=== PATIENT | female | born 1970 | race Caucasian/White ===

== ENCOUNTER 2016-09-17 09:49 | Emergency (ER) | payer OTHER ==
[2016-09-17 09:55] VITALS: BP 130/31; PULSE 102; TEMP 98.3; BMI 28.3
[2016-09-17] MEDS ORDERED: SODIUM PHOSPHATE/NA BIPHOS 133 ML ENEMA PR ONE (10:44)
--- NOTE | 2016-09-17 10:49 | PDOC ---
History of Present Illness - General Chief Complaint: Constipation Stated Complaint: CONSTIPATED Time Seen by Provider: 09/17/16 10:06 History Source: Patient Exam Limitations: No Limitations - History of Present Illness Initial Comments: 09/17/16 10:49 My Chief complaint: Constipation HISTORY OF PRESENT ILLNESS: Pt. is a 45 y/o female with no significant medical history except for constipation chronic. Patient reports that she took Dulcolax 3 days ago and drank another laxative unsure of name. Patient reports she had a small brown bowel movement yesterday and day prior. Patient continues to feel constipated and bloated yesterday. Patient denies any nausea or vomiting or fever. Patient denies eating white rice or white bread, eat salads and fruits and drinks water throughout the day. Patient has never seen a GI doctor for her chronic constipation. Patient does not take any stool softeners or any regular medication for constipation daily. Patient denies any rectal bleeding or hemorrhoids. 09/17/16 10:53 09/17/16 11:27 Timing/Duration: getting worse Severity: moderate Associated Symptoms: reports: other (last small BM 3 days ago) Past History - Past Medical History Allergies/Adverse Reactions: Allergies Allergy/AdvReac Type Severity Reaction Status Date / Time No Known Allergies Allergy Verified 09/17/16 09:55 Home Medications: Ambulatory Orders Docusate Sodium [Colace -] 200 mg PO DAILY #30 capsule MDD 200 09/17/16 Magnesium Hydroxide [Milk of Magnesia -] 30 ml PO DAILY PRN #1 bottle MDD 30 ml 09/17/16 Polyethylene Glycol 3350 [Miralax 255 gm Btl -] 17 gm PO DAILY #1 bottle Other medical history: CONSTIPATION - Psycho/Social/Smoking Cessation Hx Anxiety: No Suicidal Ideation: No Smoking History: Never smoked Hx Alcohol Use: No Drug/Substance Use Hx: No Substance Use Type: None Review of Systems - Review of Systems Able to Perform ROS?: Yes Constitutional: No: Symptoms Reported HEENTM: No: Symptoms Reported Respiratory: No: Symptoms reported Cardiac (ROS): No: Symptoms Reported ABD/GI: Yes: Constipated. No: Blood Streaked Bowels, Nausea, Rectal Bleeding, Vomiting, Abdominal cramping, Tarry Stools : No: Symptoms Reported Musculoskeletal: No: Symptoms Reported Integumentary: No: Symptoms Reported Neurological: No: Symptoms reported *Physical Exam - Vital Signs Last Vital Signs Temp Pulse Resp BP Pulse Ox 98.3 F 102 H 18 130/31 98 09/17/16 09:52 09/17/16 09:52 09/17/16 09:52 09/17/16 09:52 09/17/16 09:52 - Physical Exam General Appearance: Yes: Appropriately Dressed Respiratory/Chest: positive: Lungs Clear, Normal Breath Sounds. negative: Chest Tender, Respiratory Distress Cardiovascular: positive: Regular Rhythm, Regular Rate, S1, S2 Gastrointestinal/Abdominal: positive: Normal Bowel Sounds, Soft. negative: Tender, Organomegaly, Increased Bowel Sounds, Decreased BS, Protuberent, Distended, Guarding, Rebound, Tenderness, Hepatomegaly, Spleenomegaly Rectal Exam: positive: normal rectal tone, other (no stool felt in rectal vault) . negative: hemorrhoids Integumentary: negative: Normal Color Neurologic: positive: Alert Medical Decision Making - Medical Decision Making 09/17/16 10:52 Pt. is a 45 y/o female with no significant medical history except for constipation chronic. Patient reports that she took Dulcolax 3 days ago and drank another laxative unsure of name. Patient reports she had a small brown bowel movement yesterday and day prior. Patient continues to feel constipated and bloated yesterday. Patient denies any nausea or vomiting or fever. Patient denies eating white rice or white bread, eat salads and fruits and drinks water throughout the day. Patient has never seen a GI doctor for her chronic constipation. Patient does not take any stool softeners or any regular medication for constipation daily. Patient denies any rectal bleeding or hemorrhoids. Pt. denies any chance of has not been sexually active for over 5 months and gets regular menses. CONSTIPATION PLAN: XRAY ABDOMINAL FLAT PLATE KUB some abdominal distention upper abdomen, imaging reveals no sign of fecal impaction or gross constipation.There is some minimal amout of retained stoop. There are air-filled loops of bowel in the upper abdomen. NO sign of a gross obstruction or constipation/fecal impaction. Dr. Goel pt. to do Fleet enema at home Miralax 17 GM daily Colace 200mg daily Mild of magnesia as directed GI follow up 09/17/16 10:53 09/17/16 11:11 09/17/16 11:28 09/17/16 11:42 *DC/Admit/Observation/Transfer Diagnosis at time of Disposition: Constipation Qualifiers: Constipation type: unspecified constipation type Qualified Code(s): K59.00 - Constipation, unspecified - Discharge Dispostion Disposition: HOME Condition at time of disposition: Stable - Prescriptions Prescriptions: Docusate Sodium [Colace -] 200 mg PO DAILY #30 capsule MDD 200 Magnesium Hydroxide [Milk of Magnesia -] 30 ml PO DAILY PRN #1 bottle MDD 30 ml PRN Reason: Constipation Polyethylene Glycol 3350 [Miralax 255 gm Btl -] 17 gm PO DAILY #1 bottle - Referrals Referrals: Jake Garcia MD [Primary Care Provider] - Wilber Olson MD [Staff Physician] - - Patient Instructions Additional Instructions: Up with GI doctor as soon as possible for further evaluation return to emergency room if symptoms worsen or new symptoms develop Drink eight glass of 8 oz daily EAt at least 8-10 servings of fruit and vegetables daily Take milk of magnesia as directed by shank breaker for constipation Patient Voiced understanding of discharge instructions and all questions were answered
== END 2016-09-17 11:39 | disposition home or self-care (01) ==
LOC: JERFT 09:49
DX: K59.09 Other constipation (principal)
CPT/HCPCS: 74000-TC; 99281-25

== ENCOUNTER 2017-08-23 10:04 | Emergency (ER) | payer OTHER ==
[2017-08-23 10:17] VITALS: TEMP 98.5; BMI 25.6
[2017-08-23] MEDS ORDERED: SODIUM CHLORIDE 1,000 ML IV STA (10:35)
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
[2017-08-23 11:34] LABS: HEMATOCRIT 40.3 % (32.4-45.2); HEMOGLOBIN 13.3 GM/dL (10.7-15.3); MCH 27.8 pg (25.7-33.7); MCHC 32.9 g/dl (32.0-36.0); MEAN CELL VOLUME 84.5 fl (80-96); PLATELET COUNT 313 K/MM3 (134-434); RBC 4.77 M/mm3 (3.60-5.2); RDW 14.4 % (11.6-15.6); WHITE BLOOD COUNT 6.9 K/mm3 (4.0-10.0)
[2017-08-23 11:44] LABS: ALBUMIN 3.7 g/dl (3.4-5.0); ANION GAP 6 (8-16); BLOOD UREA NITROGEN 8 mg/dL (7-18); CALCIUM 8.3 mg/dL (8.5-10.1); CHLORIDE 105 mmol/L (98-107); CO2 30 mmol/L (21-32); CREATININE 0.8 mg/dL (0.55-1.02); GLUCOSE,RANDOM 95 mg/dL (74-106); POTASSIUM 3.5 mmol/L (3.5-5.1); SGOT/AST 13 U/L (15-37); SGPT/ALT 20 U/L (12-78); SODIUM 141 mmol/L (136-145)
[2017-08-23 11:46] LABS: ALK PHOS 58 U/L (45-117); BILIRUBIN,TOTAL 0.3 mg/dL (0.2-1.0); TOT PROT 7.2 g/dl (6.4-8.2)
[2017-08-23 12:44] LABS: HCG,QUALITATIVE URINE NEGATIVE; URINE APPEARANCE CLEAR; URINE BILIRUBIN NEGATIVE (<2.0 mg/dL); URINE COLOR COLORLESS; URINE GLUCOSE (UA) NEGATIVE (NEGATIVE); URINE KETONE NEGATIVE (NEGATIVE); URINE LEUK ESTERASE NEGATIVE (NEGATIVE); URINE NITRITE NEGATIVE (NEGATIVE); URINE PROTEIN NEGATIVE (NEGATIVE); URINE UROBILINOGEN NEGATIVE mg/dL (0.2-1.0)
[2017-08-23 12:57] LABS: COCAINE, UR NEGATIVE ng/ml (CUTOFF=300); METHADONE, UR NEGATIVE ng/ml (CUTOFF=300); OPIATES, URI NEGATIVE ng/ml (CUTOFF=300); PHENCYCLIDINE,URINE NEGATIVE ng/ml (CUTOFF=25); URINE AMPHETAMINES NEGATIVE ng/ml (CUTOFF=500); URINE BARBITURATES NEGATIVE ng/ml (CUTOFF=200); URINE BENZODIAZEPINES NEGATIVE ng/ml (CUTOFF=200)
[2017-08-23 13:20] VITALS: BP 121/83; PULSE 97
--- NOTE | 2017-08-24 11:19 | EKG ---
Test Reason : Blood Pressure : / mmHG Vent. Rate : 093 BPM Atrial Rate : 093 BPM P-R Int : 154 ms QRS Dur : 082 ms QT Int : 402 ms P-R-T Axes : 062 035 046 degrees QTc Int : 499 ms NORMAL SINUS RHYTHM PROLONGED QT ABNORMAL ECG NO PREVIOUS ECGS AVAILABLE Confirmed by JOSE SHARIF MD ([id number]) on 08/24/2017 11:19:32 AM Referred By: Confirmed By:JOSE HSARIF MD
== END 2017-08-23 14:19 | disposition home or self-care (01) ==
LOC: JER 10:04
PROC: 3E0337Z Introduction of Electrolytic and Water Balance Substance into Peripheral Vein, Percutaneous Approach (ICD-10-PCS; principal; 2017-08-23)
DX: R42 Dizziness and giddiness (principal)
CPT/HCPCS: 36415; 80053; 80307; 81003; 84703; 85027; 93005; 93010; 99283-25; J7030

== ENCOUNTER 2019-12-25 13:55 | Emergency (ER) | payer OTHER ==
[2019-12-25 14:10] VITALS: BP 116/69; PULSE 85; TEMP 98.3; BMI 30.7
[2019-12-25] MEDS ORDERED: SODIUM CHLORIDE 1,000 ML IV STA (14:17)
--- NOTE | 2019-12-25 14:48 | PDOC ---
History of Present Illness - General Chief Complaint: Pain Stated Complaint: BURNING URINATION Time Seen by Provider: 12/25/19 14:16 History Source: Patient Exam Limitations: Clinical Condition - History of Present Illness Travel History: No Initial Comments: 12/25/19 14:44 Patient with past medical history of chronic constipation presented with complai nt of 2-day history of suprapubic pain, burning with urination and left lower quadrant pain and bloating sensation. Patient reported no bowel movement in the last 3 days. Patient report she used to take Colace daily to help with bowel movement but self DC'd the medication as she does not feel is good for her anymore. Denies nausea, vomiting, fever, chills, shortness of breath, chest pain, palpitations, weakness. Denies any other symptoms Timing/Duration: reports: constant Quality: reports: moderate Abdominal Pain Onset Location: reports: LLQ, suprapubic Pain Radiation: reports: no radiation Alleviating Factors: improves with: Passing Gas Past History - Medical History Allergies/Adverse Reactions: Allergies Allergy/AdvReac Type Severity Reaction Status Date / Time No Known Allergies Allergy Verified 12/25/19 14:03 Home Medications: Ambulatory Orders Cephalexin Monohydrate [Keflex -] 500 mg PO BID 7 Days #14 capsule 12/25/19 Phenazopyridine HCl [Pyridium -] 100 mg PO PC #6 tablet 12/25/19 Polyethylene Glycol 3350 [Miralax (For Daily Use) -] 17 gm PO DAILY #1 bottle 12/25/19 Psyllium Husk (with Sugar) [Metamucil Powder] 1 tbs PO BID PRN #1 bottle 0 12/25/19 COPD: No - Reproductive History Is Patient Now?: No - Psycho-Social/Smoking History Smoking History: Never smoked - Substance Abuse Hx (Audit-C & DAST Scrn) How often the patient has a drink containing alcohol: Never Score: In Men: 4 or > Positive; In Women: 3 or > Positive: 0 Screen Result (Pos requires Nsg. Audit-10AR): Negative In the last yr the pt used illegal drug/Rx for NonMed reason: No Score: Yes response is considered Positive: 0 Screen Result (Positive result requires Nsg. DAST-10): Negative Review of Systems - Review of Systems Able to Perform ROS?: Yes Is the patient limited Syriac proficient: No Constitutional: No: Chills, Fever, Malaise HEENTM: No: Symptoms Reported, See HPI, Eye Pain, Blurred Vision, Tearing, Recent change in vision, Double Vision, Cataracts, Ear Pain, Ocular Prothesis, Ear Discharge, Nose Pain, Nose Congestion, Tinnitus, Nose Bleeding, Hearing Loss, Throat Pain, Throat Swelling, Mouth Pain, Dental Problems, Difficulty Sw allowing, Mouth Swelling, Other Respiratory: No: Symptoms reported, See HPI, Cough, Orthopnea, Shortness of Breath, SOB with Exertion, SOB at Rest, Stridor, Wheezing, Productive cough, Hemoptysis, Other Cardiac (ROS): No: Symptoms Reported, See HPI, Chest Pain, Edema, Irregular Heart Rate, Lightheadedness, Palpitations, Syncope, Chest Tightness, Other ABD/GI: Yes: Symptoms Reported, See HPI, Abdominal Distended, Constipated, Abdominal cramping (suprapubic). No: Abd. Pain w/ defecation, Diarrhea, Difficulty Swallowing, Nausea, Rectal Bleeding, Vomiting, Indigestion, Tarry Stools : Yes: Symptoms Reported, See HPI, Burning, Dysuria. No: Discharge, Flank Pain, Hematuria, Urgency Musculoskeletal: No: Symptoms Reported, See HPI, Back Pain Integumentary: No: Symptoms Reported Neurological: No: Headache, Dizziness All Other Systems: Reviewed and Negative *Physical Exam - Vital Signs Last Vital Signs Temp Pulse Resp BP Pulse Ox 98.3 F 85 18 116/69 98 12/25/19 14:03 12/25/19 14:03 12/25/19 14:03 12/25/19 14:03 12/25/19 14:03 - Physical Exam 12/25/19 14:47 GENERAL: Well developed, well nourished. Awake and alert. No acute distress. HEENT: Normocephalic, atraumatic. PERRLA, EOMI. No conjunctival pallor. Sclera are non-icteric. Moist mucous membranes. Oropharynx is clear. NECK: Supple. Full ROM. CARDIOVASCULAR: Regular rate and rhythm. No murmurs, rubs, or gallops. PULMONARY: No evidence of respiratory distress. Lungs clear to auscultation bilaterally. No wheezing, rales or rhonchi. ABDOMINAL: Soft. Moderate suprapubic tenderness. Non-distended. No rebound or guarding. No organomegaly. Diffuse decreased bowel sounds MUSCULOSKELETAL Normal range of motion at all joints. SKIN: Warm and dry. Normal capillary refill. No rashes. No cyanosis NEUROLOGICAL: Alert, awake, appropriate. Gait is normal without ataxia. PSYCHIATRIC: Cooperative. Good eye contact. Appropriate mood General Appearance: Yes: Nourished, Appropriately Dressed. No: Apparent Distress ED Treatment Course - LABORATORY CBC & Chemistry Diagram: 12/25/19 14:30 12/25/19 14:30 - RADIOLOGY Radiology Studies Ordered: Category Date Time Status ABDOMEN FLAT-LATERAL [RAD] Stat Radiology 12/25/19 14:26 Ordered Medical Decision Making - Medical Decision Making 12/25/19 14:46 Patient with past medical history of chronic constipation presented with complaint of 2-day history of suprapubic pain, burning with urination and left lower quadrant pain and bloating sensation. Patient reported no bowel movement in the last 3 days. Patient report she used to take Colace daily to help with b owel movement but self DC'd the medication as she does not feel is good for her anymore. Denies nausea, vomiting, fever, chills, shortness of breath, chest pain, palpitations, weakness. Denies vaginal discharge or bleeding. LMP December 11. Denies any other symptoms Exam significant for moderate tenderness to suprapubic region without guarding or rebound with mild subjective left lower quadrant pain. Decreased diffuse bowel sounds. Normal cardio and lung exam Patient symptoms likely constipation and cystitis versus less likely colitis. CBC, CMP lab ordered. UA, urine hCG and urine culture lab ordered. Abdominal x-ray ordered to rule out obstruction. IV hydration with 1 L normal saline ordered. Treat based on lab and imaging results 12/25/19 15:40 CBC and chemistry lab unremarkable. UA shows leukocytosis with many WBCs consistent with UTI. Abdominal x-ray shows diffuse stool in the colon with bowel gas and no obstruction. Lactulose p.o. and MiraLAX p.o. given for const ipation. Reassess after 20 minutes 12/25/19 17:32 Patient report says he have never had bowel movement but denies any abdominal pain at this time. Enema given for bowel movement. Patient reports she were to do enema at home and request to be discharged and she will take enema when she gets home. Patient stable for discharge on Keflex antibiotic for UTI and Metamucil and MiraLAX for constipation with advised to increase fluid and fiber intake with GI follow-up Discharge - Discharge Information Problems reviewed: Yes Clinical Impression/Diagnosis: Constipation Qualifiers: Constipation type: unspecified constipation type Qualified Code(s): K59.00 - Constipation, unspecified UTI (urinary tract infection) Qualifiers: Urinary tract infection type: acute cystitis Hematuria presence: without hematuria Qualified Code(s): N30.00 - Acute cystitis without hematuria Condition: Stable Disposition: HOME - Admission No - Additional Discharge Information Prescriptions: Cephalexin Monohydrate [Keflex -] 500 mg PO BID 7 Days #14 capsule Psyllium Husk (with Sugar) [Metamucil Powder] 1 tbs PO BID PRN #1 bottle PRN Reason: Constipation Polyethylene Glycol 3350 [Miralax (For Daily Use) -] 17 gm PO DAILY #1 bottle Phenazopyridine HCl [Pyridium -] 100 mg PO PC #6 tablet - Follow up/Referral Referrals: Mainor Mckinney DO [Staff Physician] - - Patient Discharge Instructions Patient Printed Discharge Instructions: DI for Urinary Tract Infection (UTI), DI for Constipation Additional Instructions: Your urine shows bacteria which you are being treated on antibiotics. Your blood work is normal. Abdominal x-ray shows constipation which were given medication today and you have been sent home on Mucinex and MiraLAX to help with constipation. Increase fluid and fiber intake. Follow-up with referred GI doctor for constipation. - Post Discharge Activity
[2019-12-25 14:52] LABS: BASO % 0.9 % (0-2.0); EOS % 0.3 % (0-4.5); HEMOGLOBIN 11.3 GM/dL (10.7-15.3); LYMPH % 27.6 % (8-40); MCH 24.9 pg (25.7-33.7); MCHC 32.2 g/dl (32.0-36.0); MEAN CELL VOLUME 77.1 fl (80-96); MEAN PLT VOLUME 8.2 fl (7.5-11.1); MONO % 7.2 % (3.8-10.2); PLATELET COUNT 335 K/MM3 (134-434); RBC 4.54 M/mm3 (3.60-5.2); RDW 19.9 % (11.6-15.6); WHITE BLOOD COUNT 9.9 K/mm3 (4.0-10.0)
[2019-12-25 14:56] LABS: EPI CELLS 11 /uL (0-25.1); HYALINE CASTS 2 /uL (0-3.1); URINE APPEARANCE CLOUDY; URINE BACTERIA >9,000 /uL (0-1359); URINE BILIRUBIN NEGATIVE (NEGATIVE); URINE COLOR YELLOW; URINE GLUCOSE (UA) NEGATIVE (NEGATIVE); URINE KETONE NEGATIVE (NEGATIVE); URINE LEUK ESTERASE 3+ (NEGATIVE); URINE NITRITE NEGATIVE (NEGATIVE); URINE PROTEIN 1+ (NEGATIVE); URINE RBC 1123 /uL (0-23.9); URINE UROBILINOGEN 0.2 mg/dL (0.2-1.0); URINE WBC 1867 /uL (0-25.8)
[2019-12-25 15:14] LABS: HCG,QUALITATIVE URINE NEGATIVE
[2019-12-25 15:21] LABS: ALBUMIN 3.2 g/dl (3.4-5.0); BILIRUBIN,TOTAL 0.3 mg/dL (0.2-1); CALCIUM 8.8 mg/dL (8.5-10.1); CREATININE 0.6 mg/dL (0.55-1.3); POTASSIUM 3.8 mmol/L (3.5-5.1); TOT PROT 6.7 g/dl (6.4-8.2)
[2019-12-25] MEDS ORDERED: LACTULOSE 20 GM/30 ML UDC (FOR ORAL USE ONLY) PO ONE (15:22)
[2019-12-25] MEDS ORDERED: POLYETHYLENE GLYCOL 3350 119 GM BTL PO ONE (15:22)
[2019-12-25] MEDS ORDERED: MAG HYDROX/AL HYDROX/SIMETH 30 ML UNIT-DOSE CUP PO ONE (15:48)
[2019-12-25] MEDS ORDERED: LACTULOSE 20 GM/30 ML UDC (FOR ORAL USE ONLY) ONE (16:03)
[2019-12-25] MEDS ORDERED: MAG HYDROX/AL HYDROX/SIMETH 30 ML UNIT-DOSE CUP ONE (16:03)
--- OUTSIDE RECORDS SUMMARY | 2019-12-25 16:19 | XMS ---
:1970 Author Organization [facility] Support Name Relationship Address Phone JONES [place] [address] NA Unavailable Unavailable Unavailable CECILIA JARQUIN NA Re-disclosure Warning The records that you are about to access may contain information from federally- assisted alcohol or drug abuse programs. If such information is present, then the following federally mandated warning applies: This information has been disclosed to you from records protected by federal confidentiality rules (42 CFR part 2). The federal rules prohibit you from making any further disclosure of this information unless further disclosure is expressly permitted by the written consent of the person to whom it pertains or as otherwise permitted by 42 CFR part 2. A general authorization for the release of medical or other information is NOT sufficient for this purpose. The Federal rules restrict any use of the information to criminally investigate or prosecute any alcohol or drug abuse patient.The records that you are about to access may contain highly sensitive health information, the redisclosure of which is protected by Article 27-F of the [place] [facility] law. If you continue you may haveaccess to information: Regarding HIV / AIDS; Provided by facilities licensed or operated by the [facility] Office of Mental Health; or Provided by the [facility] Office for People With Developmental Disabilities. If such information is present, then the following [facility] mandated warning applies: This information has been disclosed to you from confidential records which are protected by state law. State law prohibits you from making any further disclosure of this information without the specific written consent of the person to whom it pertains, or as otherwise permitted by law. Any unauthorized further disclosure in violation of state law may result in a fine or correction sentence or both. A general authorization for the release of medical or other information is NOT sufficient authorization for further disclosure. Encounters Encounter Providers Location Date Indications Data Source(s ) Emergency H 12/17/2018 05:14:00 [facility] PM EDT - 12/17/2018 [place] 06:36:00 PM EDT Patient discharged. Emergency H 12/05/2018 09:53:00 PM EDT - 019 [facility] 01:26:00 AM EDT Patient discharged. Immunizations Vaccine Date Status Description Data Source(s) Note that this vaccine 12/06/2018 completed [facility] name has changed. See 12:25:00 AM EDT Ce nter also Td (adult). It is not adsorbed. Medications Medication Brand Start Product Dose Route Administrative Pharmacy [facility] Indications Reaction Description Data Name Date Form Instructions Instructions Source(s) Phenazopyri phenaz 1 complet Ian nt dine opyrid ed [place] hydrochlori ine Medical de 200 MG 200 mg Center Oral Tablet Tablet phenazopyri , dine 200 mg Ordere Tablet, d By: Ordered By: Kirill Johnston, , MDDirection MDDire s: 1 tablet ctions oral three : 1 times a day tablet PRN dysuria oral three times a day PRN dysuri a Ciprofloxac ciprof 1 complet Ian nt in 250 MG loxaci ed [place] Oral Tablet n HCl Medical ciprofloxac 250 mg Center in HCl 250 Tablet mg Tablet, , Ordered By: Sj dawkins By: Kirill Johnstonirection Vickie s: 1 tablet , oral twice MDDire a day ctions : 1 tablet oral twice a day Insurance Providers Payer name Policy type Policy ID Covered Covered democrat's Policy P ga / Coverage democrat ID relationship to Shepherd Inf ormation type shepherd [facility] [id number] [facility] Problems, Conditions, and Diagnoses Code Display Name Description Problem Type Effective Dates Data Source(s) Y99.8 Other external OTHER EXTERNAL Diagnosis 12/17/2018 [facility] cause status CAUSE STATUS 05:14:00 PM EDT Medic al Center Y92.[address] IN Diagnosis 12/17/2018 Annetta Arnold in unspecified UNSP NON-INSTITUT 05:14:00 PM ED T [facility] non-institutional (PRIVATE) (private) RESIDENCE residence as the PLACE place of occurrence of the external cause Y93.E5 Activity, floor ACTIVITY, FLOOR Diagnosis 12/17/2018 Annetta Arnold mopping and MOPPING AND 05:14:00 PM EDT Medical Center cleaning CLEANING W25.XXXD Contact with CONTACT WITH Diagnosis 12/17/2018 [facility] sharp glass, [place], 05:14:00 PM EDT Medic al Center subsequent SUBSEQUENT encounter ENCOUNTER S61.216D Laceration LAC W/O FB OF R Diagnosis 12/17/2018 [facility] without foreign LITTLE FINGER W/O 05:14:00 PM E Medical Center body of right DAMAGE TO NAIL, little finger SUBS without damage to nail, subsequent encounter W25.XXXA Contact with CONTACT WITH Diagnosis 12/05/2018 [facility] sharp [place], [place], 09:53:00 PM EDT Medic al Center initial encounter INITIAL ENCOUNTER S61.216A Laceration LAC W/O FB OF R Diagnosis 12/05/2018 [facility] without foreign LITTLE FINGER W/O 09:53:00 PM E Medical Center body of right DAMAGE TO NAIL, little finger INIT without damage to nail, initial encounter S61.419A Laceration LACERATION Diagnosis 12/05/2018 [facility] without foreign WITHOUT FOREIGN 09:53:00 PM EDT Medical Center body of BODY OF UNSP unspecified hand, HAND, INIT ENCNTR initial encounter Social History Code Duration Value Status Description Data Source(s ) Smoking 12/17/2018 Denies Ever completed Denies Ever Smoked [facility] 05:56:00 PM EDT Smoked Medical C enter Smoking 12/17/2018 Denies Ever completed Denies Ever Smoked [facility] 05:15:00 PM EDT Smoked Medical [facility] enter Smoking 12/05/2018 Denies Ever completed Denies Ever Smoked [facility] 11:19:00 PM EDT Smoked Medical C enter Smoking 12/05/2018 Denies Ever completed Denies Ever Smoked [facility] 10:30:00 PM EDT Smoked Medical C enter Smoking 12/05/2018 Denies Ever completed Denies Ever Smoked [facility] 10:13:00 PM EDT Smoked Medical C enter Vital Signs ID Date Data Source UNK Name Value Range Interpretation Code Description Data Source(s) Body temperature 36.620709 [id number] [facility] Respiratory rate 17 /min 17 /min [facility] Oxygen saturation 98 % 98 % [facility] [place] in Arterial blood [facility] by Pulse oximetry Heart rate 90 /min 90 /min [facility] Diastolic blood 79 mm[Hg] 79 mm[Hg] [facility] Systolic blood 127 mm[Hg] 127 mm[Hg] [facility] Body temperature 36.642977 [id number] [facility] Respiratory rate 17 /min 17 /min [facility] Oxygen saturation 99 % 99 % [facility] by Pulse oximetry Heart rate 88 /min 88 /min [facility] Diastolic blood 76 mm[Hg] 76 mm[Hg] [facility] Systolic blood 131 mm[Hg] 131 mm[Hg] [facility] Body temperature 36.956330 36.100128 [facility] Respiratory rate 16 /min 16 /min [facility] Oxygen saturation 99 % 99 % [facility] J [facility]sephs in Arterial blood [facility] by Pulse oximetry Heart rate 93 /min 93 /min [facility] Diastolic blood 63 mm[Hg] 63 mm[Hg] [facility] Systolic blood 133 mm[Hg] 133 mm[Hg] [facility] Patient Treatment Plan of Care Planned Activity Planned Date Details Description Data Source (s) Ciprofloxacin 250 MG Oral Sa [facility] Tablet [place] Phenazopyridine hydrochloride [facility] 200 MG Oral Tablet [place]
== END 2019-12-25 17:31 | disposition home or self-care (01) ==
LOC: JER 13:55
PROC: 3E0337Z Introduction of Electrolytic and Water Balance Substance into Peripheral Vein, Percutaneous Approach (ICD-10-PCS; principal; 2019-12-25)
DX: K59.00 Constipation, unspecified (principal); N30.00 Acute cystitis without hematuria
CPT/HCPCS: 36415; 74019-TC-FY; 80053; 81003; 84703; 85025; 87086; 87186; 87491; 87591; 99284-25

== ENCOUNTER 2021-03-18 13:26 | Emergency (ER) | payer OTHER ==
[2021-03-18 14:03] VITALS: BP 105/72; PULSE 103; TEMP 98.3; BMI 32.1
== END 2021-03-18 15:22 | disposition home or self-care (01) ==
LOC: JER 13:26
DX: T81.31XA Disruption of external operation (surgical) wound, not elsewhere classified, initial encounter (principal)
CPT/HCPCS: 99281-25

== ENCOUNTER 2021-12-20 11:58 | Emergency (ER) | payer OTHER ==
[2021-12-20 12:42] VITALS: BP 114/74; PULSE 109; RESP 20; TEMP 98; BMI 37.8
[2021-12-20 14:29] LABS: HCG,QUALITATIVE URINE Negative
[2021-12-20 14:32] LABS: EPI CELLS 23 /uL (0-25.1); HYALINE CASTS 1 /uL (0-3.1); PH,URINE 5.5 (5.0-8.0); URINE APPEARANCE CLEAR; URINE BACTERIA 255 /uL (0-1359); URINE BILIRUBIN NEGATIVE (NEGATIVE); URINE COLOR DK YELLOW; URINE GLUCOSE (UA) NEGATIVE (NEGATIVE); URINE KETONE TRACE (NEGATIVE); URINE LEUK ESTERASE TRACE (NEGATIVE); URINE NITRITE NEGATIVE (NEGATIVE); URINE PROTEIN NEGATIVE (NEGATIVE); URINE RBC 19 /uL (0-23.9); URINE WBC 7 /uL (0-25.8)
[2021-12-20] MEDS ORDERED: AZITHROMYCIN 500 MG TABLET PO ONE (15:09)
[2021-12-20] MEDS ORDERED: AZITHROMYCIN 250 MG TABLET ONE (15:12)
[2021-12-20] MEDS ORDERED: FLUCONAZOLE 150 MG TABLET PO ONE ×2 (15:14→15:16)
== END 2021-12-20 15:34 | disposition home or self-care (01) ==
LOC: JERFT 11:58
DX: N89.8 Other specified noninflammatory disorders of vagina (principal); N30.00 Acute cystitis without hematuria
CPT/HCPCS: 81003; 84703; 87086; 96372; 99284-25

== ENCOUNTER 2022-07-15 20:00 | Emergency (ER) | payer OTHER ==
[2022-07-15 20:16] VITALS: BP 118/85; PULSE 87; RESP 18; TEMP 98.5; BMI 26.4
[2022-07-15 20:56] LABS: EPI CELLS 17 /uL (0-25.1); HYALINE CASTS 4 /uL (0-3.1); URINE APPEARANCE TURBID; URINE BACTERIA >9,000 /uL (0-1359); URINE BILIRUBIN 1+ (NEGATIVE); URINE COLOR DK YELLOW; URINE GLUCOSE (UA) NEGATIVE (NEGATIVE); URINE KETONE TRACE (NEGATIVE); URINE LEUK ESTERASE 3+ (NEGATIVE); URINE NITRITE POSITIVE (NEGATIVE); URINE PROTEIN 2+ (NEGATIVE); URINE WBC 4876 /uL (0-25.8)
[2022-07-15] MEDS ORDERED: CEFUROXIME AXETIL 250 MG TABLET PO ONE (21:06)
[2022-07-15 21:34] LABS: URINE CRYSTALS MODERATE CA OXALATE /hpf; URINE RBC 15844.4 /uL (0-23.9)
== END 2022-07-15 22:03 | disposition home or self-care (01) ==
LOC: JER 20:00
DX: N30.01 Acute cystitis with hematuria (principal); R30.0 Dysuria
CPT/HCPCS: 36415; 81003; 87086; 87186; 87491; 87591; 99283-25

== ENCOUNTER 2022-12-07 10:13 | Emergency (ER) | payer OTHER ==
[2022-12-07 10:32] VITALS: BP 127/86; PULSE 107; RESP 18; TEMP 98.9; BMI 25.4
[2022-12-07] MEDS ORDERED: ACETAMINOPHEN 500 MG TABLET (FP) PO ONE (11:10)
[2022-12-07] MEDS ORDERED: ACETAMINOPHEN 500 MG TABLET (FP) ONE (11:33)
[2022-12-07] MEDS ORDERED: FAMOTIDINE 20 MG/50 ML IVPB 20 MG in PREMIX 50 IVPB ONE (11:39)
[2022-12-07] MEDS ORDERED: SODIUM CHLORIDE 1,000 ML IV ONE (11:39)
[2022-12-07] MEDS ORDERED: FAMOTIDINE 20 MG/50 ML IVPB 20 MG/50 ML MG IVPB ONE (11:44)
[2022-12-07 12:04] LABS: BASO % 0.5 % (0-2.0); EOS % 0.2 % (0-4.5); HEMATOCRIT 41.9 % (32.4-45.2); HEMOGLOBIN 13.4 GM/dL (10.7-15.3); LYMPH % 37.3 % (8-40); MCH 27.2 pg (25.7-33.7); MEAN CELL VOLUME 84.9 fl (80-96); MEAN PLT VOLUME 9.1 fl (7.5-11.1); MONO % 7.5 % (3.8-10.2); NEUT % 54.5 % (42.8-82.8); PLATELET COUNT 309 10^3/uL (134-434); RBC 4.93 M/mm3 (3.60-5.2); RDW 14.5 % (11.6-15.6); WHITE BLOOD COUNT 6.6 K/mm3 (4.0-10.0)
[2022-12-07 12:09] LABS: EPI CELLS 20 /uL (0-25.1); HYALINE CASTS 2 /uL (0-3.1); PH,URINE 5.5 (5.0-8.0); URINE APPEARANCE CLEAR; URINE BACTERIA 11 /uL (0-1359); URINE BILIRUBIN NEGATIVE (NEGATIVE); URINE COLOR DK YELLOW; URINE GLUCOSE (UA) NEGATIVE (NEGATIVE); URINE KETONE TRACE (NEGATIVE); URINE LEUK ESTERASE 1+ (NEGATIVE); URINE NITRITE NEGATIVE (NEGATIVE); URINE PROTEIN TRACE (NEGATIVE); URINE WBC 65 /uL (0-25.8)
[2022-12-07 12:16] LABS: POTASSIUM 3.2 mmol/L (3.5-5.1)
[2022-12-07 12:18] LABS: CALCIUM 9.2 mg/dL (8.5-10.1)
[2022-12-07 12:19] LABS: ALBUMIN 3.5 g/dl (3.4-5.0); BLOOD UREA NITROGEN 9.3 mg/dL (7-18)
[2022-12-07 12:22] LABS: CREATININE 0.7 mg/dL (0.55-1.3)
[2022-12-07 12:23] LABS: TOT PROT 7.1 g/dl (6.4-8.2)
[2022-12-07 12:24] LABS: BILIRUBIN,TOTAL 0.7 mg/dL (0.2-1)
[2022-12-07 14:42] LABS: URINE RBC 59 /uL (0-23.9)
== END 2022-12-07 15:03 | disposition home or self-care (01) ==
LOC: JER 10:13
PROC: 3E033GC Introduction of Other Therapeutic Substance into Peripheral Vein, Percutaneous Approach (ICD-10-PCS; principal; 2022-12-07)
PROC: 3E0337Z Introduction of Electrolytic and Water Balance Substance into Peripheral Vein, Percutaneous Approach (ICD-10-PCS; 2022-12-07)
DX: R10.13 Epigastric pain (principal); R11.2 Nausea with vomiting, unspecified; R10.31 Right lower quadrant pain
CPT/HCPCS: 36415; 74177-TC; 80053; 81003; 83690; 83735; 84702; 85025; 87086; 93005; 93010; 99285-25; Q9967

== ENCOUNTER 2024-04-23 11:13 | Emergency (ER) | payer SELFPAY ==
[2024-04-23 11:33] VITALS: BP 111/81; PULSE 86; RESP 16; TEMP 99.5; BMI 25.4
[2024-04-23 13:04] LABS: EOS % 0.4 % (0-4.5); HEMATOCRIT 41.7 % (32.4-45.2); HEMOGLOBIN 13.7 GM/dL (10.7-15.3); LYMPH % 41.9 % (8-40); MCHC 32.8 g/dl (32.0-36.0); MEAN CELL VOLUME 85.4 fl (80-96); MEAN PLT VOLUME 7.8 fl (7.5-11.1); MONO % 7.5 % (3.8-10.2); NEUT % 49.2 % (42.8-82.8); PLATELET COUNT 351 10^3/uL (134-434); RBC 4.88 M/mm3 (3.60-5.2); RDW 13.1 % (11.6-15.6); WHITE BLOOD COUNT 5.7 K/mm3 (4.0-10.0)
[2024-04-23 13:07] LABS: PH,URINE 5.5 (5.0-8.0); URINE APPEARANCE TURBID; URINE BILIRUBIN NEGATIVE (NEGATIVE); URINE COLOR YELLOW; URINE GLUCOSE (UA) NEGATIVE (NEGATIVE); URINE KETONE TRACE (NEGATIVE); URINE LEUK ESTERASE NEGATIVE (NEGATIVE); URINE NITRITE NEGATIVE (NEGATIVE); URINE PROTEIN TRACE (NEGATIVE); URINE UROBILINOGEN 0.2 mg/dL (0.2-1.0)
[2024-04-23 13:20] LABS: EPI CELLS 32 /uL (0-25.1); HYALINE CASTS 4 /uL (0-3.1); URINE BACTERIA 185 /uL (0-1359); URINE RBC 13 /uL (0-23.9)
[2024-04-23 13:23] LABS: POTASSIUM 3.5 mmol/L (3.5-5.1)
[2024-04-23 13:25] LABS: CALCIUM 9.4 mg/dL (8.5-10.1)
[2024-04-23 13:26] LABS: ALBUMIN 3.7 g/dl (3.4-5.0); BLOOD UREA NITROGEN 12.9 mg/dL (7-18)
[2024-04-23] MEDS ORDERED: ACETAMINOPHEN INJECTION 100 ML ONE (13:26)
[2024-04-23 13:29] LABS: CREATININE 0.7 mg/dL (0.55-1.3)
[2024-04-23 13:30] LABS: BILIRUBIN,TOTAL 0.3 mg/dL (0.2-1); TOT PROT 7.4 g/dl (6.4-8.2)
[2024-04-23 13:34] LABS: URINE WBC 138.1 /uL (0-25.8)
[2024-04-23] MEDS: ACETAMINOPHEN 1000 MG/100 ML BAG IVPB ONE (14:29)
== END 2024-04-23 16:00 | disposition home or self-care (01) ==
LOC: JER 11:13
PROC: 3E033NZ Introduction of Analgesics, Hypnotics, Sedatives into Peripheral Vein, Percutaneous Approach (ICD-10-PCS; principal; 2024-04-23)
DX: R10.31 Right lower quadrant pain (principal); K59.00 Constipation, unspecified; R14.0 Abdominal distension (gaseous)
CPT/HCPCS: 36415; 74177-TC; 80053; 81003; 83690; 84484; 85025; 87086; 93005; 93010; 99285-25; J0131